=== PATIENT | male | born 1950 | race Caucasian/White ===

== ENCOUNTER 2018-03-23 18:09 | Emergency (ER) | payer MEDICARE, MEDICAID, SELFPAY ==
[2018-03-23 18:44] VITALS: BP 153/89; PULSE 89; RESP 18; TEMP 37.3; O2SAT 96
--- NOTE | 2018-03-23 18:58 | ED.WOUNDLAC ---
HPI - Wound/Laceration General Chief Complaint: Wound/Laceration Stated Complaint: FELL OFF BOAT DOCK Time Seen by Provider: 03/23/18 18:12 Source: patient Mode of arrival: ambulatory Limitations: no limitations History of Present Illness HPI narrative: Patient presents to the emergency department today for evaluation of a right forearm laceration suffered when he slipped and fell on a dock just prior to arrival. He denies any head neck or back pain. He denies any preceding symptoms to the fall such as dizziness, weakness or lightheadedness. He states he merely slipped on a plastic doc. He has a laceration and states his tetanus will need to be up dated Onset (ago): minute(s) Extremity Location: Right: forearm Place: outdoors Patient tetanus UTD: No Context: accidental Associated symptoms: pain Related Data Home Medications Medication Instructions Recorded Confirmed ASPIRIN (#ASPIRIN E.C.) 81 mg PO QDAY #0 02/26/12 IBUPROFEN (Ibuprofen) 200 mg PO PRN #0 02/26/12 atenolol-chlorthalidone 1 tab PO QDAY #0 02/26/12 CA PANTOTHENATE/FOLIC ACID/VIT 1 PO QDAY #0 02/29/12 (MULTIVITAMIN) Previous Rx's Medication Instructions Recorded doxycycline hyclate 100 mg PO BID #20 cap 03/23/18 Allergies Allergy/AdvReac Type Severity Reaction Status Date / Time No Known Drug Allergies Allergy Verified 03/23/18 18:44 Review of Systems Review of Systems All systems reviewed & are unremarkable except as noted in HPI and below Constitutional Denies chills, Denies fever(s), Denies lethargy and Denies weakness ENT Ears, Nose, Mouth, and Throat: Denies change in voice, Denies neck pain and Denies sore throat Cardiovascular Denies chest pain, Denies irregular heart rhythm, Denies lightheadedness, Denies palpitations, Denies dyspnea, Denies dyspnea on exertion and Denies orthopnea Respiratory Denies cough, Denies dyspnea, Denies dyspnea on exertion and Denies wheezing Gastrointestinal Gastrointestinal: Denies abdominal pain, Denies change in bowel habits, Denies diarrhea, Denies nausea and Denies vomiting Genitourinary Denies hematuria, Denies flank pain, Denies urinary incontinence and Denies urinary urgency Musculoskeletal Denies neck pain Integumentary/Breasts Denies pruritus, Denies erythema, Denies rash and Reports wounds Neurologic Denies confusion and Denies weakness Psychiatric Denies anxiety, Denies confusion, Denies depression, Denies homicidal ideation and Denies suicidal ideation Endocrine Denies palpitations Hematologic/Lymphatic Denies easy bruising Allergic/Immunologic Denies wheezing [facility] Social History Smoking Status: Current every day smoker Exam Initial Vital Signs Initial Vital Signs: Vital Signs Temperature 99.2 F 03/23/18 18:44 Pulse Rate 89 03/23/18 18:44 Respiratory Rate 18 03/23/18 18:44 Blood Pressure 153/89 H 03/23/18 18:44 Pulse Oximetry 96 03/23/18 18:44 Const General: cooperative and well developed Nutritional Appearance: well nourished Orientation: alert, awake, oriented x3 and not confused HENWV Head: normocephalic and atraumatic Ears: external ears normal and TM's normal bilaterally Nose: external nose normal and No nasal discharge Face and sinus: sinuses nontender, face symmetric, no sinus tenderness and No dry mucous membranes Mouth: oral mucosae normal and moist mucous membranes Teeth and gingiva: dentition normal Throat: tonsils normal and uvula midline Neck Neck: normal visual inspection, trachea midline, No lymphadenopathy, No midline deformity and No JVD Lymphatic: No lymphedema Resp Effort & Inspection: normal respiratory effort, able to speak in complete sentences, no respiratory distress and no use of accessory muscles Auscultation: clear to auscultation bilaterally, no rales, no rhonchi and no wheezes GI Inspection: non-distended Palpation: soft, no hepatosplenomegaly, No guarding, No pulsatile mass and No tender Auscultation: normal bowel sounds Back/Spine/Pelvis Back: No CVA tenderness Cervical Spine: cervical ROM normal and No pain with cervical ROM Thoracic/Lumbar Spine: thoracic and lumbar spine normal to inspection Skin Trauma: laceration (6 cm irregular, flap laceration dorsum right forearm) Neuro General: alert, oriented x3, gait normal and no focal motor deficits Speech: speech normal Procedures Joint Aspiration/Injection Laceration 1: Site: upper extremity Side (If applicable): right Size (cm): 6 Description: flap Depth: simple, single layer Local Anesthetic: lidocaine 1% and with epi Amount of anesthesia used (mL): 3 Pre-repair: wound explored, irrigated extensively and deep structures intact Skin layer closed with: nylon Size (cm): 4-0 Number of sutures: 6 Technique: simple, interrupted and horizontal mattress Course Orders Ordered: Discontinued Medications Diphtheria/Tetanus/Acell Pertussis (Adacel) 0.5 ml IM .ONCE ONE Stop: 03/23/18 19:24 Last Admin: 03/23/18 19:24 Dose: 0.5 ml Vital Signs - 8 hr 03/23/18 18:44 Temperature 99.2 F Pulse Rate 89 Respiratory Rate 18 Blood Pressure 153/89 H Pulse Oximetry 96 Discharge Plan Departure Patient Disposition: Home, Self-Care Clinical Impression: Laceration Discharge Date/Time: 03/23/18 19:20 Interventions: ED Discharge Assessment Last Done: 03/23/18 19:45 Instructions: DI for Laceration Repair Activity Restrictions/Additional Instructions: Please keep the wound clean and dry to the best of your ability. Please monitor for signs of infection such as redness to the skin or increasing pain. Have the sutures removed by your doctor in about 7 days. If you are unable to get into your doctor, we would be happy to remove the sutures in that same timeframe. Prescriptions: New doxycycline hyclate 100 mg capsule 100 mg PO BID Qty: 20 RF: 0 No Action atenolol-chlorthalidone 50 MG/25 MG tablet 1 tab PO QDAY Qty: 0 RF: 0 ASPIRIN (#ASPIRIN E.C.) 81 mg PO QDAY Qty: 0 RF: 0 IBUPROFEN (Ibuprofen) 200 mg PO PRN Qty: 0 RF: 0 CA PANTOTHENATE/FOLIC ACID/VIT (MULTIVITAMIN) 1 PO QDAY Qty: 0 RF: 0
[2018-03-23] MEDS: TET,DIPH,PERTUSS(ACELL),VAC/PF 0.5 ML SYRINGE IM (19:24)
--- NOTE | 2018-03-23 19:44 | PC.NURSE ---
rn initial pt contact following suture repair by MD Sr, distal cms intact, dressed with 4x4/coban per order
== END 2018-03-23 19:20 | disposition home or self-care (01) ==
PROVIDERS: Emergency Provider Emergency Medicine; Family Provider Family Medicine; PCP Family Medicine
DX: S51.811A Laceration without foreign body of right forearm, initial encounter (principal); V93.32XA Fall on board fishing boat, initial encounter
CPT/HCPCS: 12002; 90471; 99283; 90715